=== PATIENT | female | born 1985 | race Caucasian/White ===

== ENCOUNTER 2017-08-12 05:10 | Day surgery (SDC) | payer OTHER ==
[2017-08-10 13:56] VITALS: BMI 25.4
[2017-08-12] MEDS ORDERED: ACETAMINOPHEN 325 MG TABLET (FP) PO PRN (07:31)
[2017-08-12] MEDS ORDERED: IBUPROFEN 400 MG TABLET (FP) PO PRN (07:31)
--- NOTE | 2017-08-12 07:31 | HP ---
History & Physical Update - History History: No Change - Physical Physical: No Change - Assessment Assessment: No Change - Plan Plan: No Change
--- NOTE | 2017-08-12 07:32 | OP ---
Operative Note - Note: Operative Date: 08/12/17 Pre-Operative Diagnosis: Cervical Polyp. Endometrial Polyp Operation: HYsteroscopic Myomectomy. Suction DC Post-Operative Diagnosis: Same as Pre-op Surgeon: Yoanna Gibson Anesthesia: General Estimated Blood Loss (mls): 30 Operative Report Dictated: Yes
--- NOTE | 2017-08-12 07:40 | HP ---
Satellite [facility] - Chief Complaint Chief Complaint: Endometrial polyp. Cervical Polyp History Source: Patient Limitations to Obtaining History: No Limitations - Past Medical History Allergies/Adverse Reactions: Allergies Allergy/AdvReac Type Severity Reaction Status Date / Time No Known Allergies Allergy Verified 08/10/17 14:00 ...LMP: 07/30/17 - Current Medications Current Medications: Home Medications Medication Instructions Recorded NK [No Known Home Medication] 08/10/17 Satellite Physical Exam - Physical Examination Vital Signs: Vital Signs Period Temp Pulse Resp BP Sys/Quinn Pulse Ox Last 24 Hr 98.0 F 72 16 103/70 99 General Appearance: Well Nourished, Well Developed ENT: Clear Lung: Clear to auscultation Heart: Regular rate & rhythm Breasts: Soft, Non-Tender Abdomen: Soft Extremities: No edema Neurological: Intact, Alert, Oriented Satellite Impression/Plan - Impression/Plan Impression: Endometrial Polyp. Cervical Polyp Operative Procedure: Hysteroscopic Myomectomy SUction DC Date to be Performed: 08/12/17
[2017-08-12] MEDS ORDERED: PROPOFOL 20 ML ONE (07:51)
[2017-08-12] MEDS ORDERED: MIDAZOLAM HCL 2 MG/2 ML SINGLE DOSE VIAL ONE (07:52)
[2017-08-12] MEDS ORDERED: KETOROLAC TROMETHAMINE 30 MG/1 ML VIAL ONE (08:06)
[2017-08-12] MEDS ORDERED: DEXAMETHASONE SOD PHOSPHATE 4 MG/1 ML VIAL ONE (08:06)
[2017-08-12] MEDS ORDERED: oxyCODONE HCL 5 MG TABLET PO PRN (08:38)
--- NOTE | 2017-08-12 08:40 | OP ---
DATE OF OPERATION: 08/12/2017 PREOPERATIVE DIAGNOSIS: Cervical polyp. OPERATION: Hysteroscopic myomectomy, suction dilatation and curettage. POSTOPERATIVE DIAGNOSIS: Cervical polyp. SURGEON: Yoanna Gibson MD ANESTHESIA: General. ANESTHESIOLOGIST: PROCEDURE: Patient was taken to the operating room, placed in dorsal lithotomy position, prepped and draped in the usual sterile fashion. A time-out was performed in accordance with hospital regulations. Cervix was then dilated to accommodate the operative hysteroscope. Hysteroscopy was then done. Cervical polyps and some endometrial polyps were seen. Hysteroscopic removal of the polyps was then done. Suction dilatation and curettage was then done, submitted to Pathology. All instruments were then removed after sufficient dilatation and curettage performed, and endometrium and cervical canal and cavity were noticed to be normal. All polyps were removed. Estimated blood loss was 20 mL. Patient had tolerated the procedure well and was taken to the recovery room in stable condition. YOANNA GIBSON M.D. [id number]
[2017-08-12] MEDS ORDERED: LACTATED RINGERS SOLUTION 1,000 ML IV SCH (08:45)
[2017-08-12] MEDS: ONDANSETRON 4 MG/2 ML VIAL IVPUSH PRN ×2 (09:15→10:10)
[2017-08-12] MEDS ORDERED: ONDANSETRON 4 MG/2 ML VIAL ONE (10:05)
[2017-08-12 12:30] VITALS: TEMP 98.1
[2017-08-12 12:37] VITALS: BP 113/57; PULSE 63
--- NOTE | 2017-08-13 13:02 | PATH ---
Surgical Pathology Report Patient Name: CHARLETTE RAYMOND [facility]. Rec. #: [id number] /Age/Gender: 1985 (Age: 32) / F Account: [id number] Location: [facility] SURGICAL Taken: 08/12/2017 Received: 08/12/2017 Reported: 08/13/2017 Physicians: Yoanna Gibson M.D. Specimen(s) Received UTERINE CONTENTS Clinical History Cervical polyps Final Diagnosis UTERINE CONTENTS, DILATATION AND CURETTAGE: ENDOCERVICAL POLYPS, POLYPOID FRAGMENTS OF PROLIFERATIVE ENDOMETRIUM AND SUPERFICIAL MYOMETRIUM. Electronically Signed Ursula Concepcion M.D. Gross Description Received in formalin labeled "uterine contents," is a 2.6 x 2.4 x 0.3 cm aggregate of rodrigues soft tissue fragments. The formalin is filtered and the specimen is entirely submitted in one cassette. /08/12/201708/12/2017
== END 2017-08-12 12:30 | disposition home or self-care (01) ==
LOC: JASU-SURG 05:10
PROVIDERS: ATTEND Obstetrics & Gynecology
PROC: 0UBC8ZX Excision of Cervix, Via Natural or Artificial Opening Endoscopic, Diagnostic (ICD-10-PCS; principal; 2017-08-12 08:00)
PROC: 0UB98ZX Excision of Uterus, Via Natural or Artificial Opening Endoscopic, Diagnostic (ICD-10-PCS; 2017-08-12 08:00)
PROC: 0UDB8ZX Extraction of Endometrium, Via Natural or Artificial Opening Endoscopic, Diagnostic (ICD-10-PCS; 2017-08-12 08:00)
DX: N84.1 Polyp of cervix uteri (principal); N84.0 Polyp of corpus uteri
CPT/HCPCS: 88305-TC; 94760

== ENCOUNTER 2022-06-28 02:36 | Emergency (ER) | payer OTHER ==
[2022-06-28 02:46] VITALS: BMI 25.8
[2022-06-28] MEDS ORDERED: ACETAMINOPHEN 325 MG TABLET (FP) ONE (04:03)
[2022-06-28] MEDS ORDERED: ACETAMINOPHEN 325 MG TABLET (FP) PO ONE (04:03)
[2022-06-28] MEDS ORDERED: KETOROLAC TROMETHAMINE 30 MG/1 ML VIAL IM ONE (04:03)
[2022-06-28] MEDS ORDERED: KETOROLAC TROMETHAMINE 30 MG/1 ML VIAL ONE (04:04)
[2022-06-28] MEDS ORDERED: LIDOCAINE VISCOUS 2% ORAL/TOP 15 ML UNIT-DOSE CUP MM ONE (04:14)
[2022-06-28] MEDS ORDERED: LIDOCAINE VISCOUS 2% ORAL/TOP 15 ML UNIT-DOSE CUP ONE ×2 (04:14→06:17)
[2022-06-28 05:03] VITALS: BP 98/59; PULSE 91; RESP 19; TEMP 97.9
[2022-06-28] MEDS ORDERED: DIPHTH,PERTUSS(ACELL),TET 0.5 ML DISP.SYRIN IM ONE ×2 (06:21→06:24)
== END 2022-06-28 06:36 | disposition home or self-care (01) ==
LOC: JER 02:36
PROC: 0CQ10ZZ Repair Lower Lip, Open Approach (ICD-10-PCS; principal; 2022-06-28)
PROC: 3E0234Z Introduction of Serum, Toxoid and Vaccine into Muscle, Percutaneous Approach (ICD-10-PCS; 2022-06-28)
PROC: 3E0233Z Introduction of Anti-inflammatory into Muscle, Percutaneous Approach (ICD-10-PCS; 2022-06-28)
DX: S01.511A Laceration without foreign body of lip, initial encounter (principal); S09.90XA Unspecified injury of head, initial encounter; Y04.0XXA Assault by unarmed brawl or fight, initial encounter; Y92.9 Unspecified place or not applicable
CPT/HCPCS: 12011-25; 70450-TC; 70486-TC; 72125-TC; 90471; 90715; 96372; 99285-25

== ENCOUNTER 2023-09-16 04:13 | Day surgery (SDC) | payer OTHER ==
[2023-09-09 14:35] VITALS: BMI 28.1
[2023-09-16 11:45] VITALS: TEMP 97.1
[2023-09-16 12:54] VITALS: BP 101/52; PULSE 57; RESP 20
== END 2023-09-16 12:53 | disposition home or self-care (01) ==
LOC: JASU-ENDO 04:13
PROVIDERS: ATTEND Internal Medicine Gastroenterology
PROC: 0DJD8ZZ Inspection of Lower Intestinal Tract, Via Natural or Artificial Opening Endoscopic (ICD-10-PCS; principal; 2023-09-16 10:45)
DX: K92.1 Melena (principal); K64.8 Other hemorrhoids
CPT/HCPCS: 81025

== ENCOUNTER 2024-03-20 04:33 | Day surgery (SDC) | payer OTHER ==
[2024-03-17 09:44] VITALS: BMI 27.3
[2024-03-20] MEDS ORDERED: IBUPROFEN 400 MG TABLET (FP) PO PRN (10:26)
[2024-03-20] MEDS ORDERED: ACETAMINOPHEN 325 MG TABLET (FP) PO PRN (10:26)
[2024-03-20] MEDS ORDERED: MIDAZOLAM HCL 2 MG/2 ML SINGLE DOSE VIAL ONE (13:13)
[2024-03-20] MEDS ORDERED: PROPOFOL 20 ML ONE (13:14)
[2024-03-20] MEDS ORDERED: oxyCODONE HCL 5 MG TABLET PO PRN (13:16)
[2024-03-20] MEDS ORDERED: ONDANSETRON 4 MG/2 ML VIAL IVPUSH PRN (13:16)
[2024-03-20] MEDS ORDERED: LACTATED RINGERS SOLUTION 1,000 ML IV SCH (13:30)
[2024-03-20] MEDS ORDERED: ONDANSETRON 4 MG/2 ML VIAL ONE (13:51)
[2024-03-20] MEDS ORDERED: DEXAMETHASONE SOD PHOSPHATE 4 MG/1 ML VIAL ONE (13:51)
[2024-03-20] MEDS ORDERED: KETOROLAC TROMETHAMINE 30 MG/1 ML VIAL ONE (13:51)
[2024-03-20 15:31] VITALS: RESP 18
[2024-03-20 16:16] VITALS: BP 104/56; PULSE 81; TEMP 97.8
== END 2024-03-20 16:50 | disposition home or self-care (01) ==
LOC: JASU-SURG 04:33
PROVIDERS: ATTEND Obstetrics & Gynecology
PROC: 0UBC8ZZ Excision of Cervix, Via Natural or Artificial Opening Endoscopic (ICD-10-PCS; principal; 2024-03-20 12:30)
PROC: 0UB98ZZ Excision of Uterus, Via Natural or Artificial Opening Endoscopic (ICD-10-PCS; 2024-03-20 12:30)
DX: N84.1 Polyp of cervix uteri (principal); N84.0 Polyp of corpus uteri; N88.2 Stricture and stenosis of cervix uteri
CPT/HCPCS: 81025; 88305-TC; 88307-TC; 94760